=== PATIENT | male | born 1965 | race Hispanic/Latino ===

== ENCOUNTER 2020-12-16 11:39 | Emergency (ER) | payer BC ==
[~2020-12-16] VITALS: Ht 170.2 cm; Wt 86.2 kg
[2020-12-16] MEDS ORDERED: CASIRIVIMAB/IMDEVIMAB 10 ML in SODIUM CHLORIDE 0.9% 100 ML IV ONE (11:45)
== END 2020-12-16 13:19 | disposition home or self-care (01) ==
LOC: ER 11:42
DX: R05 Cough (principal); U07.1 COVID-19; I10 Essential (primary) hypertension; R51.9 Headache, unspecified; R11.0 Nausea
CPT/HCPCS: 99283; J7050